=== PATIENT | female | born 1975 | race Caucasian/White ===

== ENCOUNTER 2016-09-27 22:25 | Emergency (ER) | payer BC ==
[~2016-09-27] VITALS: Ht 172.7 cm; Wt 79.8 kg
--- NOTE | 2016-09-28 00:15 | NUR ---
Pt c/o allergic reaction earlier tonight. Sts she developed a rash, difficulty breathing and felt like her airway was closing at approx 1999. Pt took a claritin and did not call 911. Since symptoms have resolved. Resp even and unlabored. Airway open and patent. No resp distress noted at this time. Pt speaking full sentences. Pt resting in position of comfort for self. Family at bedside. Awaiting further eval.
[2016-09-28] MEDS ORDERED: FAMOTIDINE 20 MG TABLET PO ONE (01:00)
[2016-09-28] MEDS ORDERED: diphenhydrAMINE 25 MG CAP PO ONE ×2 (01:00→01:08)
[2016-09-28] MEDS ORDERED: predniSONE 20 MG TABLET PO ONE (01:00)
[2016-09-28] MEDS ORDERED: FAMOTIDINE 20 MG TABLET ONE (01:08)
[2016-09-28] MEDS ORDERED: predniSONE 50 MG TABLET ONE (01:08)
[2016-09-28] MEDS ORDERED: predniSONE 10 MG TABLET ONE (01:08)
--- NOTE | 2016-09-28 01:17 | NUR ---
Pt seen by MD. Pt medicated for allergic reaction. Pt stable for discharge per MD. Pt given ACI. Pt verbalized understanding of dc instructions. 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
[2016-09-28 01:19] VITALS: BP 140/72
== END 2016-09-28 01:20 | disposition home or self-care (01) ==
LOC: ER 22:26
DX: T78.2XXA Anaphylactic shock, unspecified, initial encounter (principal); F10.20 Alcohol dependence, uncomplicated; F17.200 Nicotine dependence, unspecified, uncomplicated
CPT/HCPCS: 99284; A4663; J7512 ×2; Q0163